=== PATIENT | female | born 1985 | race African-American/Black ===

== ENCOUNTER 2023-07-14 05:30 | Emergency (ER) | payer MEDICAID ==
[~2023-07-14] VITALS: Ht 170.2 cm; Wt 82.0 kg
[2023-07-14 05:35] VITALS: O2SAT 99
[2023-07-14] MEDS: KETOROLAC 30MG/ML VIAL IV STA (06:29)
[2023-07-14] MEDS: ONDANSETRON HCL 4MG/2ML INJ IV STA (06:29)
[2023-07-14 06:43] LABS: HEMATOCRIT. 31.4 % (36.0-48.0); HEMOGLOBIN. 9.7 g/dL (12.0-16.0); MEAN CORPUSCULAR HEMOGLOBIN 26.7 pg (28.0-32.0); MEAN CORPUSCULAR HGB CONC 30.8 g/dL (31.0-37.0); MEAN CORPUSCULAR VOLUME 86.6 fL (81.0-99.0); MEAN PLATELET VOLUME 7.9 fl (7.4-10.4); PLATELET 308 x1000/uL (130-400); RED BLOOD CELL COUNT 3.63 mill/uL (4.2-5.4); RED CELL DISTRIBUTION WIDTH 17.4 % (11.6-14.6); WHITE BLOOD COUNT 10.1 x1000/uL (4.5-11.0)
[2023-07-14 06:57] LABS: ALANINE AMINOTRANSFERASE < 7 IU/L (10-49); ALBUMIN 3.9 g/dL (3.2-4.8); ASPARTATE AMINOTRANSFERASE 12 IU/L (<34); BILIRUBIN TOTAL 0.3 mg/dL (0.1-1.0); CALCIUM 8.6 mg/dL (8.7-10.4); CARBON DIOXIDE 24 mEq/L (21-32); CHLORIDE 106 mEq/L (98-107); CREATININE 0.7 mg/dL (0.6-1.0); GLUCOSE 98 mg/dL (70-105); POTASSIUM 4.7 mEq/L (3.5-5.1); PROTEIN TOTAL 6.7 g/dL (6.0-8.3); SODIUM 138 mEq/L (136-145); UREA NITROGEN BLOOD 8 mg/dL (9-23)
[2023-07-14 06:58] LABS: DIFFERENTIAL COMMENT 1
[2023-07-14] MEDS: SODIUM CHLORIDE 0.9% 1,000 ML IV ONE (07:10)
[2023-07-14 07:12] LABS: HCG SCREEN NEGATIVE
[2023-07-14] MEDS ORDERED: HYDROCODONE/ACETAMINOPHEN 10/325MG TABLET PO ONE (10:15)
[2023-07-14] MEDS ORDERED: IBUP-2029 MT (11:29)
[2023-07-14 11:37] LABS: NUCLEATED RED BLOOD CELLS 1 /100 WBC
[2023-07-14 11:38] LABS: ANISOCYTOSIS 1+; HYPOCHROMASIA 1+; PLATELET ESTIMATE NORMAL
[2023-07-14] MEDS: HYDROCODONE/ACETAMINOPHEN 10/325MG TABLET PO NR (11:40)
[2023-07-14 11:45] VITALS: BP 142/81; PULSE 100; RESP 17; TEMP 98.2
== END 2023-07-14 11:45 | disposition home or self-care (01) ==
LOC: ER 06:09
DX: R51.9 Headache, unspecified (principal); Z86.59 Personal history of other mental and behavioral disorders; Z85.72 Personal history of non-Hodgkin lymphomas
CPT/HCPCS: 99285; 96374; 70450; 96361; 96375; 80053; 84703; 85025; 36415; J1885; J2405; J7030